=== PATIENT | male | born 1990 | race Caucasian/White ===

== ENCOUNTER → 2020-03-01 | Outpatient (CLI) | payer OTHER ==
[~2020-03-01] MED LIST: IBUP-1060 PO; MULT-245 PO; OMEG100021 PO; glucosamine
== END ==
LOC: LAB 08:21
PROVIDERS: ATTEND Surgery
DX: Z01.812 Encounter for preprocedural laboratory examination (principal); K40.90 Unilateral inguinal hernia, without obstruction or gangrene, not specified as recurrent; Z20.828 Contact with and (suspected) exposure to other viral communicable diseases
CPT/HCPCS: U0003

== ENCOUNTER 2020-03-04 11:01 | Day surgery (SDC) | payer OTHER ==
[~2020-03-04] VITALS: Ht 175.3 cm; Wt 115.0 kg
[~2020-03-04 11:01] MED LIST changes: +ACETAMINOPHEN 500 MG TABLET PO ONE; +HYDROmorphone 2 MG/ML VIAL IV PRN; -IBUP-1060 PO; +LIDOCAINE 1% PF 2 ML VIAL. ID PRN; +MORPHINE SULFATE 2 MG/ML VIAL. IV PRN; +ONDANSETRON PF 4 MG/2 ML VIAL. IV PRN; +PROCHLORPERAZINE 10 MG/2 ML VIAL. IV PRN; +fentaNYL PF VIAL 100 MCG/2 ML VIAL IV PRN
--- NOTE | 2020-03-04 11:30 | PDOC1 ---
History and Physical Date of Admission Date of Admission DATE: 03/04/20 TIME: 11:28 Identification/Chief Complaint Chief Complaint Right groin pain Source Source: Patient History of Present Illness History of Present Illness 29-year-old male complains of painful right groin especially with activity ultrasound shows right inguinal hernia Past Medical History Cardiovascular: No pertinent hx Pulmonary: No pertinent hx GI: No pertinent hx Heme/Onc: No pertinent hx Hepatobiliary: No pertinent hx Psych: No pertinent hx Rheumatologic: No pertinent hx Infectious disease: No pertinent hx ENT: No pertinent hx Renal/: No pertinent hx Endocrine: No pertinent hx Dermatology: No pertinent hx Past Surgical History Past Surgical History: Other (Left knee surgery) Family History Family History: No Significant Social History Smoke: No ALCOHOL: occassional Drugs: None Current Medications Current Medications Current Medications Bupivacaine HCl/ Epinephrine Bitart (Sensorcaine-Epi 0.25%-1:165212 Mpf) 30 ml 1X ONCE INJ ; Start 03/04/20 at 07:00; Stop 03/04/20 at 07:01; Status DC Ondansetron HCl (Zofran) 4 mg PRN Q6HRS PRN IV NAUSEA/VOMITING; Start 03/04/20 at 07:00; Stop 03/05/20 at 06:59 Fentanyl Citrate (Fentanyl 2ml Vial) 25 mcg PRN Q5MIN PRN IV MILD PAIN 1-3; Start 03/04/20 at 07:00; Stop 03/05/20 at 06:59 Fentanyl Citrate (Fentanyl 2ml Vial) 50 mcg PRN Q5MIN PRN IV MODERATE TO SEVERE PAIN; Start 03/04/20 at 07:00; Stop 03/05/20 at 06:59 Morphine Sulfate (Morphine Sulfate) 1 mg PRN Q10MIN PRN IV SEVERE PAIN 7-10; Start 03/04/20 at 07:00; Stop 03/05/20 at 06:59 Ringer's Solution 1,000 ml @ 30 mls/hr Q24H IV ; Start 03/04/20 at 07:00; Stop 03/04/20 at 18:59 Lidocaine HCl (Xylocaine-Mpf 1% 2ml Vial) 2 ml PRN 1X PRN ID PRIOR TO IV START; Start 03/04/20 at 07:00; Stop 03/05/20 at 06:59 Hydromorphone HCl (Dilaudid) 0.5 mg PRN Q10MIN PRN IV SEV PAIN, Second choice; Start 03/04/20 at 07:00; Stop 03/05/20 at 06:59 Prochlorperazine Edisylate (Compazine) 5 mg PACU PRN PRN IV NAUSEA, MRX1; Start 03/04/20 at 07:00; Stop 03/05/20 at 06:59 Acetaminophen (Tylenol) 1,000 mg ONCE ONCE PO ; Start 03/04/20 at 06:00; Stop 03/04/20 at 06:01; Status DC Mineral Oil (Muri-Lube) 10 ml STK-MED ONCE MC ; Start 03/04/20 at 07:03; Stop 03/04/20 at 07:03; Status DC Cefazolin Sodium/ Dextrose 0 ml @ As Directed STK-MED ONCE IV ; Start 03/04/20 at 09:08; Stop 03/04/20 at 09:09; Status DC Acetaminophen (Tylenol) 1,000 mg 1X ONCE PO ; Start 03/04/20 at 11:00; Stop 03/04/20 at 11:01; Status DC Cefazolin Sodium/ Dextrose 50 ml @ 100 mls/hr 1X PREOP PRN IV PRIOR TO PROCEDURE; Start 03/05/20 at 06:00; Stop 03/05/20 at 18:00 Active Scripts Active Reported Fish Oil 1,000 mg Softgel (Innis-3/Dha/Epa/Fish Oil) 1,000 Mg Capsule 1 Cap PO DAILY 30 Days Multi Vitamin Daily (Multivitamin) 1 Each Tablet 1 Tab PO DAILY 30 Days [glucosamine] Allergies Allergies: Coded Allergies: cefaclor (Verified Allergy, Intermediate, Unknown, 03/02/20) ROS Genitourinary: YES Other (Groin pain) Physical Exam General: Alert, Oriented X3, Cooperative, No acute distress HEENT: Atraumatic, EOMI Lungs: Clear to auscultation, Normal air movement Heart: RRR, no murmurs Abdomen: Normal bowel sounds, Soft, No tenderness Male Genitals Exam: other (Right inguinal hernia) Rectal Exam: not examined Extremities: No edema Skin: No significant lesion Neuro: Normal speech Psych/Mental Status: Mental status NL Vitals Vitals Vital Signs Date Time Temp Pulse Resp B/P (MAP) Pulse Ox O2 Delivery O2 Flow Rate FiO2 03/04/20 11:24 98.4 91 20 135/61 99 Room Air 98.4 VTE Prophylaxis Ordered VTE Prophylaxis Devices: Yes VTE Pharmacological Prophylaxi: Contraindicated Assessment/Plan Assessment/Plan Right inguinal hernia plan robotic assisted laparoscopic right inguinal hernia repair with mesh Justifications for Admission Other Justification ANITA BRONSON MD Mar 04, 2020 11:30
[2020-03-04] MEDS: IV RINGERS,LACTATED 1000ML 1,000 ML IV SCH (11:35)
[2020-03-04] MEDS: ACETAMINOPHEN 500 MG TABLET PO ONE (11:36)
[2020-03-04] MEDS: BUPIVACAINE-EPI 0.25%-1:200000 MPF 30 ML VIAL. INJ ONE (12:34)
[2020-03-04] MEDS: MINERAL OIL for SURGERY 10 ML VIAL. MC ONE (12:34)
[2020-03-04] MEDS ORDERED: ROCURONIUM 50 MG/5 ML VIAL. ONE (12:53)
[2020-03-04] MEDS ORDERED: fentaNYL PF VIAL 100 MCG/2 ML VIAL ONE ×3 (12:53→13:37)
[2020-03-04] MEDS ORDERED: MIDAZOLAM HCL/PF 2 MG/2 ML VIAL. ONE (12:53)
[2020-03-04] MEDS ORDERED: PROPOFOL 10 MG/ML (20ML) VIAL. IV ONE (12:54)
[2020-03-04] MEDS ORDERED: LIDOCAINE 2% PF 5 ML VIAL. ONE (12:54)
[2020-03-04] MEDS ORDERED: DEXAMETHASONE SOD PHOS 4 MG/ML VIAL ONE (12:55)
[2020-03-04] MEDS ORDERED: ONDANSETRON PF 4 MG/2 ML VIAL. ONE (12:55)
[2020-03-04] MEDS ORDERED: SEVOFLURANE 61 TO 120 MINUTES. IH ONE (12:55)
[2020-03-04] MEDS ORDERED: GLYCOPYRROLATE 1 MG/5 ML VIAL. ONE (13:05)
[2020-03-04] MEDS ORDERED: NEOSTIGMINE METHYLSULFATE 5 MG/5 ML SYRINGE. ONE (13:05)
--- NOTE | 2020-03-04 13:09 | PDOC4 ---
Operative Note Operative Note Date: 03/04/2012 at 1306 Preoperative diagnosis: Right inguinal hernia Postoperative diagnosis: Same Procedure: Robotic assisted laparoscopic right inguinal hernia repair with mesh Surgeon: Edwin Specimen: None Dictation: Patient is 29-year-old gentleman who is complained of right groin pain and ultrasound showing a right inguinal hernia. Procedure of right inguinal hernia repair was explained to the patient detail risk benefits were also discussed including bleeding infection injury to intra-abdominal contents possible necessitating further or open operations alternatives to this procedure also discussed with the patient who seemed to understand and gave both verbal and written consent had procedure performed. Patient was taken to the operating room placed in the supine position general anesthesia was initiated once patient was sleeping intubated was placed in low lithotomy positioning and his abdomen was prepped and draped usual sterile fashion using ChloraPrep. An area just above the umbilicus was injected with quarter percent Marcaine with epinephrine incision was made 11 blade scalpel and a varies needle was placed within the abdomen creating pneumoperitoneum once this was complete 8 mm da Seven port was placed in a da Seven camera was then placed within the abdomen which was inspected no other abnormalities were noted. 8 mm da Seven port was placed in the right midabdomen and an 8 mm da Seven port was placed in the left midabdomen. The da Seven robot was brought into docked all port sites. Surgeon went to the robotic console using a grasper and Endo Raman scissors the peritoneum over the right inguinal area was incised a flap was propagated inferiorly reducing the hernia sac and contents. A large Bard 3D max mesh for the right side was placed over the hernia defect and the peritoneum was closed over the mesh with a running 2-0 VueLock absorbable suture. Once this was complete the pneumoperitoneum was reduced all ports were removed the da Seven robot undocked all port sites were closed with 4 subcuticular Monocryl Mastisol Steri-Strips and island dressings were applied. Patient was awakened and extubated in the operating room taken to recovery in stable condition all sponge instrument needle counts listed as correct estimated blood loss 5 mL ANITA BRONSON MD Mar 04, 2020 13:09
--- NOTE | 2020-03-04 13:10 | DISCH ---
DISCHARGE INSTRUCTIONS Condition on Discharge Condition on Discharge: Stable Activity After Discharge Activity Instructions for Disc: Avoid exertion Other activity instructions: No lifting more than 20 pounds for 2 weeks Diet after Discharge Diet after Discharge: Regular Wound Incision Care Other wound/incision instructi: May shower in 24 hours Contacting the after DC Call your doctor for: If your condition worsens Follow-Up Follow up with: Dr. Bronson in 2 weeks ANITA BRONSON MD Mar 04, 2020 13:10
[2020-03-04] MEDS ORDERED: IBUP-1060 PO (13:16)
[2020-03-04] MEDS ORDERED: KETOROLAC 30 MG/ML VIAL. ONE (13:16)
[2020-03-04] MEDS: fentaNYL PF VIAL 100 MCG/2 ML VIAL IV PRN (13:39)
[2020-03-04] MEDS: IBUPROFEN 400 MG TABLET. PO ONE (13:47)
[2020-03-04 13:58] VITALS: BP 111/50
== END 2020-03-04 14:50 | disposition home or self-care (01) ==
LOC: SURG 11:01 → EDUNIT# 12:30 → SURG 14:50
PROVIDERS: ATTEND Surgery
DX: K40.90 Unilateral inguinal hernia, without obstruction or gangrene, not specified as recurrent (principal); Z79.899 Other long term (current) drug therapy; Z98.890 Other specified postprocedural states; Z88.8 Allergy status to other drugs, medicaments and biological substances; Z72.89 Other problems related to lifestyle
CPT/HCPCS: 49650; C1781; J0690; J1100; J1885; J2250; J2405; J2704; J2710; J3010; J3490; S2900

== ENCOUNTER → 2020-09-03 | Outpatient (CLI) | payer OTHER ==
[~2020-09-03] MED LIST changes: -ACETAMINOPHEN 500 MG TABLET PO ONE; +GADOTERATE 5 MMOL/10ML VIAL. INT ART ONE; -HYDROmorphone 2 MG/ML VIAL IV PRN; +IBUP-1060 PO; +IOHEXOL 300 MG/ML 50 ML VIAL. INT ART ONE; +LIDOCAINE 1% Multi-Dose 20 ML VIAL. ID ONE; -LIDOCAINE 1% PF 2 ML VIAL. ID PRN; -MORPHINE SULFATE 2 MG/ML VIAL. IV PRN; -ONDANSETRON PF 4 MG/2 ML VIAL. IV PRN; -PROCHLORPERAZINE 10 MG/2 ML VIAL. IV PRN; -fentaNYL PF VIAL 100 MCG/2 ML VIAL IV PRN
--- NOTE | 2020-09-03 14:26 | KCIC ---
EXAM: Fluoroscopic guided right injection for MR arthrography. HISTORY: Pain. TECHNIQUE: The risks of the procedure were discussed with the patient and written and verbal consent was obtained. A time out was performed. Fluoroscopic imaging of the right was performed and a site ov erlying the joint space was selected for needle entry. The skin overlying this region was sterilely p repped, draped and infiltrated with 1% lidocaine. A spinal needle was then advanced into the joint sp davis with fluoroscopic guidance. Appropriate needle tip positioning was confirmed with injection of 3 cc Isovue 300 contrast. Subsequently, 10 cc of a 1:200 mixture of gadolinium contrast in 1% lidocaine and Isovue 300 contrast was injected into the joint space. Fluoroscopic images demonstrate intraarti cular accumulation of contrast. The needle was removed and a sterile bandage was placed at the needle entry site. The patient tolerated the procedure without difficulty and was transferred to the [facility] for the post injection MR portion of the exam. A single fluoroscopic image was obtained. The total fluoroscopy time was 14 seconds. IMPRESSION: Successful fluoroscopic guided right shoulder injection for MR arthrography. Please refer to the separate MR arthrogram report for further evaluation details. Electronically signed by: Karli Young MD (09/03/2020 2:24 PM) [id number]
--- NOTE | 2020-09-03 15:34 | KCIC ---
Exam Date: 09/03/2020 1:55 PM MRI RIGHTUPPER EXTREMITY JOINT WITH IV CONTRAST Indication: Reason: Chronic Right shoulder pain, pain w/certain arm movements. / Spl. Instructions: / History: Right shoulder pain.. MR ARTHROGRAM RIGHT SHOULDER WITH CONTRAST TECHNIQUE: Multiplanar MR imaging of the shoulder was performed following the intra-articular injecti on of both iodinated contrast and dilute gadolinium contrast. The fluorscopic-guided shoulder injec tion procedure is reported separately. FINDINGS: There is abnormal contrast extending into the superior labrum consistent with a superior labral anter ior to posterior tear (SLAP tear) which extends from the superior labrum posteriorly to the inferior labrum. Long head of the biceps tendon is intact. There is a small amount of contrast in the subacromial/subdeltoid bursa raising suspicion for a full- thickness rotator cuff tendon tear. However, no definite large full-thickness rotator cuff tendon tea r is identified. There is increased signal involving the mid insertional fibers of the supraspinatus tendon which could represent small full-thickness perforations. The infraspinatus, teres minor, and s ubscapularis tendons are intact. Rotator cuff musculature demonstrates normal signal and bulk. Moderate degenerative changes are seen at the AC joint. There is an intact type II acromion. Mild degenerative changes are seen at the glenohumeral joint. Bone marrow demonstrates benign signal on all sequences without acute fracture. IMPRESSION: There is a large superior labral anterior to posterior tear (SLAP tear) extending from the superior l abrum posteriorly to the inferior labrum. Contrast extension is seen into the subacromial/subdeltoid bursa raising suspicion for a full-thickne ss rotator cuff tendon tear. No definite large full-thickness tear is identified, though there is inc reased signal in the supraspinatus tendon insertional fibers which could represent full-thickness per forations. Electronically signed by: Chun Reynolds MD (09/03/2020 3:32 PM) [id number]
== END | disposition home or self-care (01) ==
LOC: KCIC 12:56
PROVIDERS: ATTEND Family Medicine
DX: M25.511 Pain in right shoulder (principal); S43.431A Superior glenoid labrum lesion of right shoulder, initial encounter; Z79.899 Other long term (current) drug therapy; Z88.8 Allergy status to other drugs, medicaments and biological substances; Z72.89 Other problems related to lifestyle; X58.XXXA Exposure to other specified factors, initial encounter; Y93.89 Activity, other specified; Y92.89 Other specified places as the place of occurrence of the external cause; Y99.8 Other external cause status
CPT/HCPCS: 23350; 73222; 77002; A9575; J3490; Q9967

== ENCOUNTER 2020-10-15 08:49 | Day surgery (SDC) | payer OTHER ==
[~2020-10-15] VITALS: Ht 175.3 cm; Wt 104.5 kg
[~2020-10-15 08:49] MED LIST changes: +BUSP5TAB PO; -GADOTERATE 5 MMOL/10ML VIAL. INT ART ONE; +HYDROmorphone 2 MG/ML VIAL IVP PRN; -IOHEXOL 300 MG/ML 50 ML VIAL. INT ART ONE; +IV RINGERS,LACTATED 1000ML 1,000 ML IV SCH; -LIDOCAINE 1% Multi-Dose 20 ML VIAL. ID ONE; +PROCHLORPERAZINE 10 MG/2 ML VIAL. IVP PRN; +fentaNYL PF VIAL 100 MCG/2 ML VIAL IVP PRN
[2020-10-15 09:37] VITALS: BP 119/73
[2020-10-15] MEDS ORDERED: CLINDAMYCIN 900MG PREMIX 50 ML IV ONE (10:22)
[2020-10-15] MEDS ORDERED: BUPIVACAINE MPF 0.5% 30 ML VIAL. ONE ×2 (10:31→11:17)
[2020-10-15] MEDS ORDERED: MIDAZOLAM HCL/PF 2 MG/2 ML VIAL. ONE (10:31)
[2020-10-15] MEDS ORDERED: EPINEPHrine VIAL 30 MG/30 ML VIAL ONE (11:17)
[2020-10-15] MEDS ORDERED: fentaNYL PF VIAL 100 MCG/2 ML VIAL ONE ×3 (11:21→12:56)
[2020-10-15] MEDS ORDERED: KETAMINE HCL IN NACL, ISO-OSM 50 MG/5 ML SYRINGE ONE (11:29)
[2020-10-15] MEDS ORDERED: LIDOCAINE 2% PF 5 ML VIAL. ONE (11:39)
[2020-10-15] MEDS ORDERED: PROPOFOL 10 MG/ML (20ML) VIAL. IV ONE ×2 (11:39)
[2020-10-15] MEDS ORDERED: DEXAMETHASONE SOD PHOS 4 MG/ML VIAL ONE ×2 (11:40)
[2020-10-15] MEDS ORDERED: PROCHLORPERAZINE 10 MG/2 ML VIAL. ONE (12:26)
[2020-10-15] MEDS ORDERED: MORPHINE SULFATE 2 MG/ML INJ. ONE (12:26)
[2020-10-15] MEDS: MORPHINE SULFATE 2 MG/ML INJ. IVP PRN ×2 (12:29→12:40)
[2020-10-15] MEDS: fentaNYL PF VIAL 100 MCG/2 ML VIAL IVP PRN ×2 (12:35→12:44)
[2020-10-15] MEDS ORDERED: SEVOFLURANE 31 TO 60 MINUTES. IH ONE (12:36)
[2020-10-15] MEDS ORDERED: OXYC1TAB15 PO (12:40)
--- NOTE | 2020-10-15 12:41 | DISCH ---
DISCHARGE INSTRUCTIONS Condition on Discharge Condition on Discharge: Stable Activity After Discharge Activity Instructions for Disc: Activity as tolerated Weight Bearing Status after Di: As tolerated Diet after Discharge Diet after Discharge: Regular Wound Incision Care Wound/Incision Care: Change dressing (Remove dressing in 2 days may then shower no soaking until sutures removed) Community/Resources/Services Services at Discharge: PT EVALUATE & TREAT (Start active passive range of motion and strengthening as tolerated) Contacting the [facility] after DC Call your doctor for: Concerns you may have Follow-Up Follow up with: Dr. Hernandez or Gabbie 7 to 10 days CARROL HERNANDEZ MD Oct 15, 2020 12:41
[2020-10-15] MEDS ORDERED: HYDROmorphone 2 MG/ML VIAL ONE (12:51)
[2020-10-15 13:07] VITALS: BP 144/80
[2020-10-15] MEDS ORDERED: BUPIVACAINE MPF 0.25% 10 ML VIAL. ONE (13:17)
[2020-10-15] MEDS ORDERED: oxyCODONE/APAP 5/325 1 TAB TABLET PO ONE (13:30)
[2020-10-15] MEDS ORDERED: oxyCODONE/APAP 5/325 1 TAB TABLET ONE (13:34)
--- NOTE | 2020-10-15 16:32 | PDOC4 ---
Operative Note Operative Note Date of surgery: 10/15/2020 Preoperative diagnosis: Right shoulder rotator cuff and labral tear Postoperative diagnosis: Same with low-grade partial involvement distal supraspinatus, extensive labral tearing and fraying chondral flap tear humeral head and subacromial bursitis Operative procedure: Right shoulder extensive debridement of labrum humeral head subacromial bursa ([id number]) Surgeon: Mary Assist: Chase Patricia machinist first class Anesthesia: General plus scalene block Estimated blood loss: 10 cc Complications: None Operative indications: Please see my preoperative clinic notes for detailed operative indications and note that we had covered the additional rationale today for addressing any other pathology present as well as the rotator cuff tear shown on MRI. We covered the possibility of continued pain nonhealing infection nerve or blood vessel damage medical or other anesthetic complications among others and he wishes to proceed with surgical evaluation and treatment Operative text: Patient was identified procedure verified patient placed in the supine position on the operating table. After adequate amounts of general anesthesia plus a pre-existing scalene block were obtained she was placed in the decubitus position right side up all bony promises were well-padded shoulder was found to have full range of motion and no instability. The right shoulder was then prepped and draped in standard sterile fashion and placed in the arthroscopic arm jade with a total of 10 pounds of traction. After timeout was performed patient procedure identified and verified a standard posterior portal was established an anterior portal established using spinal needle localization and the shoulder joint was systematically examined. He was noted to have some fraying of the superior labrum which was debrided back to stable tissue biceps anchor and biceps tendon itself were intact without evidence of subluxation. He did however have additional severe labral fraying throughout the circumference which was debrided back to stable tissue with arthroscopic shaver and electrocautery. He also had a chondral flap tear of the humeral head trimmed back to stable tissue with the arthroscopic shaver and partial-thickness undersurface distal supraspinatus tear which was low-grade in nature again trimmed back to stable tissue he did have a normal bare area of the humerus and normal capsuloligamentous structures. Subacromial space was then entered bursa was cleared to allow visualization and extensive bursal irritation was noted and bursa was debrided to reveal an irritated but otherwise intact bursal side of the supraspinatus and infraspinatus tendons. Shoulder joint was drained of arthroscopic fluid portals were closed with nylon suture. Sterile dressings were applied and immobilizer was placed and patient was returned to recovery room in stable condition having tolerated the procedure well. Chase mosquera was present for the procedure assisted in patient positioning prepping draping suture management closure and dressings CARROL WILKINSON MD Oct 15, 2020 16:32
[2020-10-16] MEDS ORDERED: CLINDAMYCIN 900MG PREMIX 50 ML IV PRN (06:00)
== END 2020-10-15 14:00 | disposition home or self-care (01) ==
LOC: SURG 08:49
PROVIDERS: ATTEND Orthopaedic Surgery
DX: S43.431A Superior glenoid labrum lesion of right shoulder, initial encounter (principal); M75.51 Bursitis of right shoulder; M75.101 Unspecified rotator cuff tear or rupture of right shoulder, not specified as traumatic; Z79.899 Other long term (current) drug therapy; Z98.890 Other specified postprocedural states; X58.XXXA Exposure to other specified factors, initial encounter; Y93.89 Activity, other specified; Y92.89 Other specified places as the place of occurrence of the external cause; Y99.8 Other external cause status
CPT/HCPCS: 29823; 64415; A4565; A4930; J0171; J0780; J1100; J1170; J2250; J2270; J2704; J3010; J3490

== ENCOUNTER 2020-10-15 21:01 | Emergency (ER) | payer OTHER ==
[~2020-10-15] VITALS: Ht 175.3 cm; Wt 111.1 kg
[~2020-10-15 21:01] MED LIST changes: -HYDROmorphone 2 MG/ML VIAL IVP PRN; -IV RINGERS,LACTATED 1000ML 1,000 ML IV SCH; +OXYC1TAB15 PO; -PROCHLORPERAZINE 10 MG/2 ML VIAL. IVP PRN; -fentaNYL PF VIAL 100 MCG/2 ML VIAL IVP PRN
[2020-10-15 21:24] VITALS: BP 119/80
== END 2020-10-15 22:09 | disposition left against medical advice (07) ==
LOC: ER 21:01
DX: R53.1 Weakness (principal); R42 Dizziness and giddiness; R61 Generalized hyperhidrosis; Z53.21 Procedure and treatment not carried out due to patient leaving prior to being seen by health care provider